=== PATIENT | female | born 1990 | race American Indian/Alaskan Native ===

== ENCOUNTER 2016-11-28 16:44 | Outpatient (CLI) | payer OTHER ==
--- NOTE | 2016-11-29 11:39 | XRay Report ---
X-RAY BILATERAL KNEE AT 2 VIEWS EACH: 11/28/16 16:44:00 CLINICAL: Pain and swelling. FINDINGS: Right: No fracture or dislocation. Normal joint spaces. Normal soft tissues. No joint effusion. Left: No fracture or dislocation. Normal joint spaces.Mild prepatellar soft tissue edema. No joint effusion. IMPRESSION: Normal left knee normal right knee except for mild prepatellar soft tissue edema.
== END 2016-11-28 16:45 | disposition home or self-care (01) ==
LOC: XRAY 16:44
PROVIDERS: ATTEND Internal Medicine
DX: M25.561 Pain in right knee (principal); M25.562 Pain in left knee; M25.461 Effusion, right knee; M25.462 Effusion, left knee; R60.0 Localized edema; J45.909 Unspecified asthma, uncomplicated